=== PATIENT | female | born 1945 | race Asian ===

== ENCOUNTER → 2019-11-09 | Day surgery (SDC) | payer MEDICARE, OTHER ==
[~2019-11-09] MED LIST: ACETAMINOPHEN 325 MG TABLET PO PRN; ALBUTEROL SULFATE 2.5 MG/3 ML NEBU. NEB PRN; ATROPINE 0.5 MG/5 ML DISP.SYRIN. IV PRN; BALANCED SALT IRRIG OPHTH SOLN 15 ML BOTTLE. IRR ONE; CALC-31 PO; CATARACT OPHTH GEL 0.5 ML SYRINGE. OS ONE; CHONDROIT-SOD-HYALURONATE KIT. OS ONE; CYCL1DRO EACHEYE; EPINEPHrine AMPULE 0.5 MG in BALANCED SALT IRRIG SOLN PLUS 500 ML IO ONE; ERYTHROMYCIN 0.5% OPHTH OINTMENT 1GM TUBE. OS ONE; GLUC-11 PO; HYALURONATE SODIUM 20 MG/2 ML SYRINGE. ONE; HYALURONIDASE 75UNITS in LIDOCAINE 2% PF OPHTH 10 ML SYRINGE. OS ONE; IV RINGERS SOLUTION,LACTATED 1,000 ML IV SCH; KETO5DRO LEFTEYE; LEVO25TA4 PO; LIPITOR80 MG PO; METF500T16 PO; MIDAZOLAM HCL PF 2 MG/2 ML VIAL. IV PRN; MOXI3DRO18 LEFTEYE; MOXIFLOXACIN 0.5% OPHTH SOLUTION 3ML BOTTLE. OS SCH; MULT-245 PO; ONDANSETRON PF 4 MG/2 ML VIAL. IV PRN; PHENOL ORAL SPRAY 177ML BOTTLE. MM PRN; POVIDONE-IODINE 5% OPHTH SOLUTION 30ML BOTTLE. OS ONE; PRED5DRO16 LEFTEYE; PROPOFOL 20 ML IV ONE; TELM40TA PO; TETRACAINE 0.5% OPHTH SOLUTION 4ML BOTTLE. OS ONE; TETRACAINE 0.5% OPHTH SOLUTION 4ML BOTTLE. OU ONE; TRIA1TAB3 PO; diphenhydrAMINE 50 MG/ML VIAL IV PRN; prednisoLONE ACETATE 1% OPHTH SUSPENSION 5ML BOTTLE. ONE; prednisoLONE ACETATE 1% OPHTH SUSPENSION 5ML BOTTLE. OS SCH
[2019-11-09] MEDS: MOXIFLOXACIN 0.5% OPHTH SOLUTION 3ML BOTTLE. OS SCH ×3 (07:52→08:11)
[2019-11-09] MEDS: KETOROLAC TROMETHAMINE 0.5% OPHTH SOLUTION BOTTLE. OS SCH (09:28)
--- NOTE | 2019-11-09 09:37 | PDOC4 ---
CATARACT Operative Report DATE DATE: 11/09/19 TIME: 09:35 Operation Performed Operative Report Name: Emi Diaz Operation Date: @TD@ Preoperative Diagnosis: 1. Senile cataract, LEFT: eye Postoperative Diagnosis: 1. Senile cataract, LEFT: eye. Operation: 1. Phacoemulsification with posterior chamber intraocular lens implant. Surgeon: Grant Solre D.O. Anesthesia: Local with monitored anesthesia care. Description of Operation: With cardiac monitoring and intravenous sedation, the patient received peribulbar anesthesia in the holding area. Pressure was applied to the eye with a [place] balloon for approximately 10 minutes. The patient was taken to the operating room and placed in a supine position. The periorbital region was prepped and draped in the usual sterile fashion. A lid speculum was placed between the eyelids. The patient was positioned under the microscope. A temporal clear corneal incision was made with a keratome. Viscoelastic was then injected into the eye. A side port incision was made three clock hours to the left of the clear corneal incision. A cystotome and capsular forceps were used to make a continuous tear capsulorhexus. Hydrodissection was performed with balanced salt solution. The phacoemulsification needle was placed into the eye and the cataract was removed. The remaining cortical material was removed with irrigation and aspiration. The posterior capsule was noted to be clean and intact. Viscoelastic was again injected into the eye, inflating the posterior capsular bag. A foldable intraocular lens was then injected into the eye, unfolding as desired, and positioned in the capsular bag. The viscoelastic was aspirated from the eye. The wound edges were hydrated with balanced salt solution. There were no wound leaks. Viscoelastic was injected over the side port and clear corneal incisions. One drop of Vigamox and one drop of prednisolone acetate were instilled into the eye. The lid speculum was removed and a pressure dressing with a Cobb shield was placed over the eye. The patient was taken to the recovery room in good condition. ALLA SOLER DO Nov 09, 2019 09:36
[2019-11-09 09:45] VITALS: BP 115/44
== END ==
LOC: SURG 07:08
PROVIDERS: ATTEND Ophthalmology
DX: H25.9 Unspecified age-related cataract (principal); I10 Essential (primary) hypertension; E11.9 Type 2 diabetes mellitus without complications; E03.9 Hypothyroidism, unspecified; E66.9 Obesity, unspecified; Z68.36 Body mass index [BMI] 36.0-36.9, adult; Z79.84 Long term (current) use of oral hypoglycemic drugs
CPT/HCPCS: 66984; J0171; J2704; V2632

== ENCOUNTER → 2020-01-18 | Day surgery (SDC) | payer MEDICARE, OTHER ==
[~2020-01-18] MED LIST changes: +CATARACT OPHTH GEL 0.5 ML SYRINGE. OD ONE; -CATARACT OPHTH GEL 0.5 ML SYRINGE. OS ONE; +CHONDROIT-SOD-HYALURONATE KIT. OD ONE; -CHONDROIT-SOD-HYALURONATE KIT. OS ONE; +ERYTHROMYCIN 0.5% OPHTH OINTMENT 1GM TUBE. OD ONE; -ERYTHROMYCIN 0.5% OPHTH OINTMENT 1GM TUBE. OS ONE; -HYALURONATE SODIUM 20 MG/2 ML SYRINGE. ONE; +HYALURONIDASE 75UNITS in LIDOCAINE 2% PF OPHTH 10 ML SYRINGE. OD ONE; -HYALURONIDASE 75UNITS in LIDOCAINE 2% PF OPHTH 10 ML SYRINGE. OS ONE; -IV RINGERS SOLUTION,LACTATED 1,000 ML IV SCH; +KETOROLAC TROMETHAMINE 0.5% OPHTH SOLUTION BOTTLE. OD SCH; +KETOROLAC TROMETHAMINE 0.5% OPHTH SOLUTION BOTTLE. ONE; -MIDAZOLAM HCL PF 2 MG/2 ML VIAL. IV PRN; +MOXIFLOXACIN 0.5% OPHTH SOLUTION 3ML BOTTLE. OD SCH; -MOXIFLOXACIN 0.5% OPHTH SOLUTION 3ML BOTTLE. OS SCH; +POVIDONE-IODINE 5% OPHTH SOLUTION 30ML BOTTLE. OD ONE; -POVIDONE-IODINE 5% OPHTH SOLUTION 30ML BOTTLE. OS ONE; +TETRACAINE 0.5% OPHTH SOLUTION 4ML BOTTLE. OD ONE; -TETRACAINE 0.5% OPHTH SOLUTION 4ML BOTTLE. OS ONE; +prednisoLONE ACETATE 1% OPHTH SUSPENSION 5ML BOTTLE. OD SCH; -prednisoLONE ACETATE 1% OPHTH SUSPENSION 5ML BOTTLE. OS SCH
[2020-01-18] MEDS: MOXIFLOXACIN 0.5% OPHTH SOLUTION 3ML BOTTLE. OD SCH ×3 (08:37→08:49)
--- NOTE | 2020-01-18 09:33 | PDOC4 ---
Senile Cataract, Right Eye Date of Procedure: Jan 18, 2020 Preoperative Diagnosis: Preoperative Diagnosis: Senile Cataract, Right Eye Postoperative Diagnosis: Senile Cataract, Right Eye Anesthesia: Local with monitored anesthesia care Surgeon: Alla Soler D.O. Procedure: Right Phacoemulsification with Intraocular Lens Implant Findings: Senile Cataract Indications: Worsening vision interfering with patient's lifestyle Narrative: After discussing the risks, complications and alternatives, including but not limited to loss of vision, infection, bleeding, swelling, anesthetic reaction, capsule rupture with vitreous loss, etc., the patient was given a peribulbar block under mild IV sedation and cardiac monitoring. Pressure was applied to the eye for approximately 10 minutes. The patient was transferred to the main operating room and was prepped and draped in the usual sterile fashion and positioned under the microscope. A lid speculum was placed. A temporal clear corneal incision was made with a keratome and viscoelastic was injected into the eye. A side port incision was made. A continuous tear capsulorrhexis was performed, then hydrodissection was accomplished with balanced salt solution. The phacoemulsification needle was placed in the eye and the nucleus was emulsified. The remaining cortical material was removed with the irrigation and aspiration apparatus. The capsule was polished as needed. The posterior capsule was noted to be clean and intact. Viscoelastic was injected into the eye inflating the capsular bag. An intraocular lens was injected into the eye, unfolding as desired and was positioned in the capsular bag. The viscoelastic was aspirated from the eye. Throughout the procedure there appeared to be increased posterior pressure as the posterior capsular bag repeatedly moved forward and the anterior chamber shallowed a number of times. The wound edges were hydrated with balanced salt solution and there were no leaks. Viscoelastic was injected over the limbal incisions. Antibiotic and steroid were placed on the eye. The lid speculum was removed, the eye patched shut and a Cobb shield applied. There were no complications and the patient was taken to the PACU in good condition. ALLA SOLER DO Jan 18, 2020 09:33
[2020-01-18 09:47] VITALS: BP 117/66
== END ==
LOC: SURG 07:44
PROVIDERS: ATTEND Ophthalmology
DX: E11.36 Type 2 diabetes mellitus with diabetic cataract (principal); H25.89 Other age-related cataract; E03.9 Hypothyroidism, unspecified; I10 Essential (primary) hypertension
CPT/HCPCS: 66984; J0171; J2704; V2632